=== PATIENT | male | born 1975 | race Caucasian/White ===

== ENCOUNTER 2022-05-03 09:29 | Outpatient (CLI) | payer BC, SELFPAY ==
[2022-05-03 14:14] LABS: Albumin* 4.9 g/dL (3.3-5.0); Chloride* 104 mmol/L (96-114); Sodium* 141 mmol/L (135-149)
[2022-05-03 14:15] LABS: Potassium* 4.6 mmol/L (3.6-5.1)
[2022-05-03 14:16] LABS: Cholesterol* 247 mg/dL (90-199)
[2022-05-03 14:17] LABS: Alkaline Phosphatase* 74 U/L (40-150); Aspartate Amino Transferase* 31 U/L (12-35); Bilirubin Total* 0.6 mg/dL (0.1-1.5); Blood Urea Nitrogen* 18 mg/dL (5-24); Carbon Dioxide* 29 mmol/L (20-32); Estimated Glomerular Filt Rate 92 ml/min; Glucose* 102 mg/dL (60-115); Total Protein* 7.3 g/dL (6.0-8.3); Triglycerides* 97 mg/dL (40-149)
[2022-05-03 14:18] LABS: Alanine Aminotransferase* 25 U/L (4-50); Calcium* 9.5 mg/dL (8.4-10.6); HDL Cholesterol* 65 mg/dL (>=40); LDL Cholesterol Calculated 163 mg/dL (<100)
== END 2022-05-03 09:30 | disposition home or self-care (01) ==
PROVIDERS: PCP Physician Assistant Medical; Visit Provider Physician Assistant Medical
DX: Z00.00 Encounter for general adult medical examination without abnormal findings (principal); Z13.6 Encounter for screening for cardiovascular disorders
CPT/HCPCS: 80053; 80061; 85027; 85651

== ENCOUNTER 2022-10-09 08:26 | Outpatient (CLI) | payer BC, SELFPAY | END 2022-10-09 08:27 | disposition home or self-care (01) | LOC: OP CLINIC 08:27 | PROVIDERS: PCP Physician Assistant Medical; Visit Provider Surgery | DX: Z12.11 Encounter for screening for malignant neoplasm of colon (principal); K64.9 Unspecified hemorrhoids; K63.5 Polyp of colon | CPT/HCPCS: 45380; 45385; 88305; 99153; J2250; J3010 ==

== ENCOUNTER 2023-11-23 08:11 | Outpatient (CLI) | payer OTHER, SELFPAY | END 2023-11-23 08:12 | disposition home or self-care (01) | LOC: NFLDREF 11-26 15:33 | PROVIDERS: PCP Physician Assistant Medical; Referring Provider Physician Assistant Medical; Visit Provider Physician Assistant Medical | DX: Z13.228 Encounter for screening for other metabolic disorders (principal); Z13.220 Encounter for screening for lipoid disorders; Z12.5 Encounter for screening for malignant neoplasm of prostate | CPT/HCPCS: 80053; 80061; G0103 ==